=== PATIENT | male | born 1980 | race Caucasian/White ===

== ENCOUNTER 2017-12-16 13:36 | Emergency (ER) | payer MEDICAID ==
[~2017-12-16] VITALS: Ht 182.9 cm; Wt 70.3 kg
[2017-12-16 13:41] VITALS: BP_SYST 134
[2017-12-16] MEDS ORDERED: KETOROLAC TROMETHAMINE 60 MG/2 ML VIAL IM ONE (14:00)
[2017-12-16 14:58] VITALS: BP_SYST 136
== END 2017-12-16 14:59 | disposition home or self-care (01) ==
LOC: SED 13:36
DX: M25.521 Pain in right elbow (principal); R03.0 Elevated blood-pressure reading, without diagnosis of hypertension; J45.909 Unspecified asthma, uncomplicated; Z98.890 Other specified postprocedural states
CPT/HCPCS: 29105; 73080; 96372; 99284; J1885; J7030